=== PATIENT | male | born 1965 | race Caucasian/White ===

== ENCOUNTER → 2018-03-05 06:28 | Outpatient (CLI) | payer BC ==
[~2018-03-05] VITALS: Ht 177.8 cm; Wt 125.0 kg
--- NOTE | ~2018-03-05 | HEMODYNAMI ---
PATIENT:LAY ESCOBAR MEDICAL RECORD: [id number] : 69 LOCATION:[facility] ADMISSION DATE: 03/05/18 Generatedon:03/05/20188:59 Patient name: LAY ESCOBAR Patient #: [id number] SSN: : 1965 Date of study: 03/05/2018 Page: Of Hemodynamic Procedure Report Patient Data Patient Demographics Procedure consent was obtained First Name: LAY Gender: Male Last Name: SHAWN : 1965 Patient #: [id number] Age: 52 year(s) Race: Unknown Additional ID: [id number] Contact details [address]: [address] [place] [address] State: [place] City: [place] Zip code: [address] Admission Admission Data Admission Date: 03/05/2018 Admission Time: 6:28 Procedure Procedure Types Cath Procedure Diagnostic Procedure LHC LHC w/Coronaries Sedation Charges Moderate Sedation up to 15 minutes Procedure Description Procedure Date Procedure Date: 03/05/2018 Procedure Start Time: 8:27 Procedure End Time: 8:56 Procedure Staff Name Function Vazquez Gandhi MD Performing Physician Natividad Morel RT Monitor Fernanda Santiago RT Scrub Shamir Rg RN Nurse Procedure Data Cath Procedure Fluoroscopy Diagnostic fluoroscopy Total fluoroscopy Time: 8.1 time: 8.1 min min Diagnostic fluoroscopy Total fluoroscopy dose: dose: 1463 mGy 1463 mGy Contrast Material Contrast Material Type Amount (ml) Isovue 300 81 Entry Location Entry Primary Successful Side Size Upsize Upsize Entry Closure Moon ccessful Closure Location (Fr) 1 (Fr) 2 (Fr) Remarks Device Remarks Radial Right 6 Fr Mechanical artery Short Compression Femoral Right 5 Fr Exoseal artery Estimated blood loss: 5 ml Diagnostic catheters Device Type Used For End Catheter Placement DIAGNOSTIC Leonid 110cm Multi-vessel 5Fr catheter ([id number]) Angiography DIAGNOSTIC [place] 110cm 5 Left Coronary Fr catheter (197836) Angiography DIAGNOSTIC AR1 MOD 5Fr Right Coronary catheter ([id number]) Angiography Procedure Complications No complications Procedure Medications Medication Administration Route Dosage Oxygen etCO2 Nasal cannula 2 l/min Heparin Flush Bag added to field 2 bags (1000units/500ml NS) 0.9% NaCl I.V. 100 ml/hr Fentanyl I.V. 50 mcg Versed I.V. 1 mg Radial Cocktail added to field 1 syringe (Verapomil 2mg/Nitro 400mcg/Heparin 1500units) Fentanyl I.V. 50 mcg Versed I.V. 1 mg Radial Cocktail I.A. 1 syringe (Verapomil 2mg/Nitro 400mcg/Heparin 1500units) Fentanyl I.V. 50 mcg Versed I.V. 1 mg Fentanyl I.V. 50 mcg Versed I.V. 1 mg Hemodynamics Rest Heart Rate: 58 (bpm) Pressure Samples Time Site Value (mmHg) Purpose Heart Use Rate(bpm) 8:37 LV 174/36,49 Snapshot 70 Gradients Valve Time Site Site Mean SEP/DFP Peak To Heart Use 1 2 (mmHg) (sec/min) Peak Rate (mmHg) (bpm) Aortic 8:37 LV AO 67 Snapshots Pre Cath Intra NCS Post Cath Vital Signs Time Heart Resp SPO2 etCO2 NIBP (mmHg) Rhythm Pain Sedation Rate (ipm) (%) (mmHg) Status Level (bpm) 8:10:04 55 17 94 0 157/83(130) NSR 0 (11) 10(A) , No pain 8:14:29 56 16 100 33 156/86(133) NSR 0 (11) 10(A) , No pain 8:18:49 61 16 96 34.5 146/83(121) NSR 0 (11) 10(A) , No pain 8:23:07 73 16 96 34.5 151/89(116) NSR 0 (11) 10(A) , No pain 8:27:25 57 17 91 42.1 141/83(119) NSR 0 (11) 10(A) , No pain 8:31:41 61 17 92 51.9 135/90(124) NSR 0 (11) 9(A) , No pain 8:35:59 79 17 95 40.6 133/74(104) NSR 0 (11) 9(A) , No pain 8:40:17 66 16 91 45.1 143/76(98) NSR 0 (11) 9(A) , No pain 8:44:35 61 16 92 41.4 123/75(106) NSR 0 (11) 9(A) , No pain 8:48:47 65 17 91 48.1 133/83(110) NSR 0 (11) 9(A) , No pain 8:53:03 70 17 91 46.6 130/83(105) NSR 0 (11) 9(A) , No pain 8:56:28 68 16 93 48.8 140/86(105) NSR 0 (11) 9(A) , No pain Medications Time Medication Route Dose Verified Delivered Reason Notes Effectiveness by by 8:16:22 Oxygen etCO2 2 l/min Vazquez Andrez Per Nasal Hiram Sanders RN physician cannula 8:16:30 Heparin Flush added 2 bags Vazquez Andrez used for Bag to Hiram Sanders RN procedure (1000units/500ml field NS) 8:16:39 0.9% NaCl I.V. 100 Vazquez Andrez Per ml/hr Hiram Sanders RN physician 8:23:36 Fentanyl I.V. 50 mcg Vazquez Andrez for sedation Hiram Sanders RN 8:23:42 Versed I.V. 1 mg Vazquez Andrez for sedation Hiram Sanders RN 8:23:52 Radial Cocktail added 1 Vazquez Andrez used for (Verapomil to syringe Hiram Sanders RN procedure 2mg/Nitro field 400mcg/Heparin 1500units) 8:27:43 Fentanyl I.V. 50 mcg Vazquez Andrez for sedation Hiram Sanders RN 8:27:46 Versed I.V. 1 mg Vazquez Andrez for sedation Hiram Sanders RN 8:33:54 Radial Cocktail I.A. 1 Vazquez Andrez for (Verapomil syringe Hiram Sanders RN vasodilation 2mg/Nitro 400mcg/Heparin 1500units) 8:33:58 Fentanyl I.V. 50 mcg Vazquez Andrez for sedation Hiram Sanders RN 8:34:02 Versed I.V. 1 mg Vazquez Andrez for sedation Hiram Sanders RN 8:36:35 Fentanyl I.V. 50 mcg Vazquez Andrez for sedation Hiram Sanders RN 8:36:40 Versed I.V. 1 mg Vazquez Andrez for sedation Hiram Sanders biomaterials engineer Log Time Note 7:52:29 Natividad Morel RT(R) sent for patient. Start room use. 8:01:33 Informed consent obtained and on chart 8:01:36 Diagnostic Cath Status : Elective 8:02:30 Time tracking: Regular hours (M-F 7:00 - 5:00) 8:02:34 Plan of Care:Hemodynamics will remain stable., Cardiac rhythm will remain stable., Comfort level will be maintained., Respiratory function will remain adequate., Patient/ family verbilizes understanding of procedure., Procedure tolerated without complication., Recovers from procedure without complications.. 8:02:42 Patient received from Pre/Post Procedure Room to CCL 2 Alert and oriented. Tansferred to table in Supine position. 8:02:43 Warm blankets applied, and franklyn hugger turned on for patient comfort. 8:02:43 Correct patient and procedure confirmed by team. 8:02:44 ECG and BP/O2 sat monitors applied to patient. 8:08:56 Vital chart was started 8:16:22 Oxygen 2 l/min etCO2 Nasal cannula was administered by Andrez Sanders RN; Per physician; 8:16:30 Heparin Flush Bag (1000units/500ml NS) 2 bags added to field was administered by Andrez Sanders RN; used for procedure; 8:16:39 0.9% NaCl 100 ml/hr I.V. was administered by Andrez Sanders RN; Per physician; 8:18:12 Baseline sample Acquired. 8:18:16 Rhythm: sinus rhythm 8:18:18 Full Disclosure recording started 8:18:22 H&P Date Dictated: 03/05/2018 Within 30 days and on chart., H&P Addendum completed by physician on day of procedure. (MUST COMPLETE FOR ALL OUTPATIENTS). 8:18:23 Pre-procedure instructions explained to patient. 8:18:24 Pre-op teaching completed and patient verbalized understanding. 8:18:25 Family in waiting room. 8:18:26 Patient NPO since Midnight. 8:18:28 Is the patient allergic to Iodine/contrast media? No. 8:18:29 Was the patient premedicated? No 8:18:31 Is patient on blood thinner?No 8:18:32 Patient diabetic? Yes. 8:18:32 If diabetic: On Metformin? Yes 8:18:36 If on Metformin: Last Dose? 03/04/2018 8:18:39 Previous problem with sedation/anesthesia? No ? 8:18:48 Snore? Yes 8:18:50 Sleep apnea? No 8:18:50 Deviated septum? No 8:18:57 Opens mouth fully? Yes 8:18:58 Sticks out tongue? Yes 8:19:03 Airway obstruction? No ? 8:19:06 Dentures? No ? 8:21:25 Pre procedure: right dorsailis pedis pulse 2+ Normal; easily identifiable; not easily obliterated 8:21:29 Pre procedure: left dorsailis pedis pulse 2+ Normal; easily identifiable; not easily obliterated 8:21:32 Patient pain scale 0/10 ?. 8:21:39 IV patent on arrival in left antecubital with 0.9% NaCl at [facility]. 8:21:42 Lab results completed and on chart. 8:21:49 Right Radial & Right Groin area was prepped with chlora-prep and draped in sterile fashion 8:21:50 Alarms reviewed by R. N. 8:21:50 Sharps counted by scrub and verified by R.N. 8:22:11 Physician arrived 8:22:12 --------ALL STOP TIME OUT------ 8:22:12 Final Timeout: patient, procedure, and site verified with staff and physician. All members of the team are in agreement. 8:22:17 Right Radial & Right Groin site verified by team. 8:22:20 Physical assessment completed. ASA score P 2 - A patient with mild systemic disease as per Vazquez Gandhi MD. 8:22:25 Sedation plan: IV Moderate Sedation Medication:Versed, Fentanyl 8:22:43 Use device set Radial Dx or PCI 8:22:44 ACIST Syringe (23244) opened to sterile field. 8:22:44 Medline Cath Pack ([id number]) opened to sterile field. 8:22:45 Bag Decanter (2002) opened to sterile field. 8:22:45 DIAGNOSTIC WIRE .035 260cm J wire (114436) opened to sterile field. 8:22:46 ACIST Hand Control (13762) opened to sterile field. 8:22:46 ACIST Manifold (59428) opened to sterile field. 8:22:46 Tegaderm 4 x 4 (1626W) opened to sterile field. 8:22:47 MBrace Wrist Support ([id number]) opened to sterile field. 8:22:49 SHEATH 6Fr Prelude Radial ([id number]) opened to sterile field. 8:23:36 Fentanyl 50 mcg I.V. was administered by Andrez Sanders RN; for sedation; 8:23:42 Versed 1 mg I.V. was administered by Andrez Sanders RN; for sedation; 8:23:52 Radial Cocktail (Verapomil 2mg/Nitro 400mcg/Heparin 1500units) 1 syringe added to field was administered by Andrez Sanders RN; used for procedure; 8:27:29 Procedure started. 8:27:34 Local anesthetic to right radial artery with Lidocaine 2% by Vazquez Gandhi MD.INITIAL ACCESS ONLY 8:27:43 Fentanyl 50 mcg I.V. was administered by Andrez Sanders RN; for sedation; 8::46 Versed 1 mg I.V. was administered by Andrez Sanders RN; for sedation; 8:28:00 Baseline sample Acquired. 8:32:57 A 6 Fr Short sheath was inserted into the Right Radial artery 8:33:28 A DIAGNOSTIC Stirplate.io 110cm 5Fr catheter (354255) was advanced over the wire and used for Multi-vessel Angiography. 8:33:54 Radial Cocktail (Verapomil 2mg/Nitro 400mcg/Heparin 1500units) 1 syringe I.A. was administered by Andrez Sanders RN; for vasodilation; 8:33:58 Fentanyl 50 mcg I.V. was administered by Andrez Sanders RN; for sedation; 8:34:02 Versed 1 mg I.V. was administered by Andrez Sanders RN; for sedation; 8:36:35 Fentanyl 50 mcg I.V. was administered by Andrez Sanders RN; for sedation; 8:36:40 Versed 1 mg I.V. was administered by Andrez Sanders RN; for sedation; 8:37:14 LV hemodynamics recorded. 8:37:17 LV gram done using GUZMÁN 8:37:21 Injector settings: Ml/sec: 5, Volume: 15, 8:37:31 EF : 60 % 8:39:08 Catheter removed. 8:40:04 A DIAGNOSTIC [place] 110cm 5 Fr catheter (691824) was advanced over the wire and used for Left Coronary Angiography. 8:44:37 Catheter removed. unable to cannulate vessel. 8:45:04 SHEATH Prelude 5Fr 0.035 (FHJ-7N-14-035) opened to sterile field. 8:45:04 DIAGNOSTIC Multipack 5Fr catheter set (VL1776) opened to sterile field. 8:45:12 Local anesthetic to right femoral artery with Lidocaine 2% by Vazquez Gandhi MD.ADDITIONAL ACCESS 8:45:24 A 5 Fr sheath was inserted into the Right Femoral artery 8:48:00 5 Fr jl 4 guide catheter was inserted over the wire 8:48:52 LCA angiography performed. 8:48:55 Injector settings: Ml/sec: 3, Volume: 6, 8:50:19 Catheter removed. 8:50:37 A DIAGNOSTIC AR1 MOD 5Fr catheter ([id number]) was advanced over the wire and used for Right Coronary Angiography. 8:51:34 RCA angiography performed. 8:51:41 Injector settings: Ml/sec: 3, Volume: 6, 8:52:49 EXOSEAL 5Fr (EX500) opened to sterile field. 8:53:16 TR BAND Large ([id number]) opened to sterile field. 8:53:24 Catheter removed. 8:53:33 Sheath removed intact; hemostasis achieved with Mechanical Compression to the Right Radial artery. 8:53:39 Sheath removed intact; hemostasis achieved with Exoseal to the Right Femoral artery. 8:53:41 Procedure ended.(Physican Out) 8:55:36 Fluoroscopy time 08.10 minutes. 8:55:42 Fluoroscopy dose: 1463 mGy 8:55:42 Flurop Dose total: 1463 8:55:50 Contrast amount:Isovue 300 81ml. 8:55:51 Sharps counted by scrub and verified by R.N. 8:55:54 TR band inflated with 12cc of air. 8:55:56 Insertion/operative site no bleeding no hematoma. 8:55:58 Post-op/insertion site Right Femoral artery dressed using a 4 x 4 and Tegaderm. 8:56:02 Post right radial artery:stable 8:56:04 Post Procedure Pulses reassessed and unchanged 8:56:08 Post procedure rhythm: unchanged. 8:56:10 Estimated blood loss: 5 ml 8:56:12 Post procedure instruction explained to patient.Patient verbalizes understanding. 8:56:12 Patient needs reinforcement of post procedure teaching. 8:56:23 Procedure type changed to Cath procedure, Diagnostic procedure, LHC, LHC w/Coronaries, Sedation Charges, Moderate Sedation up to 15 minutes 8:56:24 Procedure and supply charges have been captured, reviewed, submitted and are correct. 8:56:29 Procedure Complication : No complications 8:56:31 Vital chart was stopped 8:56:31 See physician's report for complete and final results. 8:56:33 Report given to Pre/Post Procedure Room. 8:56:36 Patient transfered to Pre/Post Procedure Room with Stretcher. 8:56:40 Procedure ended. 8:56:40 Full Disclosure recording stopped 8:56:43 End room use (Document Last) Device Usage Item Name Manufacture Quantity Catalog Number Hospital Part Current M inimal Lot# / Charge Number Stock Stock Serial# Code ACIST Syringe Acist 1 44784 275359 865655 [id number] 2 0 (45995) [employer] Medline Cath Cardinal 1 [id number] 092219 22245 854415 5 Pack Health ([id number]) Bag Decanter Microtek 1 2001S 015178 03057 536979 5 (2001S) Medical Inc. DIAGNOSTIC WIRE [place] 1 638412 008929 665297 233629 3 0 .035 260cm J wire (892886) ACIST Hand Acist 1 62528 331031 227140 298941 5 Control (86766) [employer] Inc ACIST Manifold Acist 1 38829 368709 805866 697079 5 (22030) [employer] Inc Tegaderm 4 x 4 3M 1 1626W 805992 397386 709993 5 (1626W) MBrace Wrist Advanced 1 140-0250-00 464200 71138 731031 5 Support Vascular ([id number]) Dynamics SHEATH 6Fr Merit 1 [id number] 428488 521973 280579 5 Prelude Radial Medical ([id number]) DIAGNOSTIC Terumo 1 40-5023 077432 642548 524497 5 Leon[place] 110cm 5Fr catheter (878418) DIAGNOSTIC Terumo 1 40-5013 280811 129738 300916 5 [place] 110cm 5 Fr catheter (709664) SHEATH Prelude Merit 1 SPT-1M-63-035 989359 252157 678201 5 5Fr 0.035 Medical (QYY-8F-03-035) DIAGNOSTIC Cardinal 1 QN2434 489203 20427 778615 3 0 Multipack 5Fr Health catheter set (VG1433) DIAGNOSTIC AR1 Cardinal 1 [id number] 653570 487569 934405 1 5 MOD 5Fr Health catheter (451739C) EXOSEAL 5Fr Cardinal 1 EX500 167210 129952 222447 1 0 (EX500) Health TR BAND Large Terumo 1 [id number] 376889 950949 164428 4 0 ([id number]) Signature Audit [place] Stage Time Signature Unsigned Intra-Procedure 03/05/2018 Fernanda Santiago 8:59:12 AM RT(R) Signatures Monitor : Natividad Morel Signature : RT Date : Time : [facility] [address] [place] [address]
[~2018-03-05 06:28] MED LIST: CRESTOR5 MG PO; HCTZ25 MG PO; LOTENSIN20 MG PO; METFORMIN HCL500 M1 PO; NORVASC10 MG PO
[2018-03-05 07:03] LABS: BASOPHILS 0.4 % (0-2); EOSINOPHILS 3.6 % (0-7); HEMATOCRIT 44.8 % (42.0-54.0); HEMOGLOBIN 15.6 g/dL (13.5-17.5); IMMATURE GRANULOCYTES 0.1 % (0-5); LYMPHOCYTES 31.8 % (15-50); MCH 31.3 pg (26.0-34.0); MCHC 34.8 g/dL (31.0-37.0); MCV 89.8 fL (80.0-100.0); MEAN PLATELET VOLUME 10.4 fL (7.4-10.4); MONOCYTES 12.7 % (2-11); NEUTROPHILS 51.4 % (40-80); PLATELET COUNT 254 10x3/uL (130-400); RBC 4.99 10x6/uL (4.20-6.10); RDW 12.9 % (11.5-14.5); WBC 9.7 10x3/uL (4.8-10.8)
[2018-03-05 07:09] VITALS: BP 157/82; Ht 177.8 cm; Wt 125.0 kg
[2018-03-05 07:11] LABS: CALC OSMOLALITY 283 mosm/kg (275-300); CALCIUM 8.8 mg/dL (8.5-10.1); CARBON DIOXIDE 30.7 mmol/L (21.0-32.0); CHLORIDE - SERUM 102 mmol/L (98-107); CREATININE - SERUM 0.8 mg/dL (0.6-1.3); GLUCOSE 118 mg/dL (74-106); SODIUM 142 mmol/L (136-145); UREA NITROGEN 13 mg/dL (7-18); eGFR NON AFRICAN AMERICAN > 90 mL/min (90-120)
== END | disposition home or self-care (01) ==
LOC: D.CATH 06:28
PROVIDERS: Internal Medicine Cardiovascular Disease
DX: R06.00 Dyspnea, unspecified (principal); R94.39 Abnormal result of other cardiovascular function study